=== PATIENT | female | born 1965 | race Caucasian/White ===

== ENCOUNTER 2018-09-13 21:14 | Emergency (ER) | payer BC ==
[2018-09-13 21:32] VITALS: BP 154/108
[2018-09-13] MEDS ORDERED: metroNIDAZOLE TAB* 250 MG PO ONE (21:46)
--- NOTE | 2018-09-13 21:55 | UC ---
Abdominal Pain Female HPI - HPI Summary HPI Summary: 52 year old female with diarrhea over the past 1-2 days. 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 She states she used universal precautions when caring for the patient however the past 2 days she did not. She's also had cold symptoms. She has not had a period in approximately 5 or 6 months however she has started her period as well. She is perimenopausal at this point in time. She has some mild lower abdominal discomfort which she states "I would not call it pain". - History of Current Complaint Chief Complaint: UCGI Stated Complaint: DIARRHEA,ABD PAIN (EXPOSED TO CDIFF) Time Seen by Provider: 09/13/18 21:20 Hx Obtained From: Patient Hx Last Menstrual Period: 09/12/18 ?: No Onset/Duration: Gradual Onset Timing: Intermittent Episodes Lasting: Severity Initially: Mild Severity Currently: Mild Pain Intensity: 3 Location: Diffuse, Other - Across lower abdomen. Radiates: No Character: Dull Aggravating Factor(s): Nothing Alleviating Factor(s): Nothing Associated Signs and Symptoms: Positive: Diarrhea Allergies/Adverse Reactions: Allergies Allergy/AdvReac Type Severity Reaction Status Date / Time No Known Allergies Allergy Verified 09/13/18 21:21 Home Medications: Home Medications Acetaminophen [Extra Strength Non-Aspirin] 1,500 mg PO Q8H PRN 09/13/18 [ History Confirmed 09/13/18] Albuterol HFA INHALER* [Ventolin HFA Inhaler*] 2 puff INH Q4H PRN 09/13/18 [ History Confirmed 09/13/18] Ibuprofen/Pseudoephedrine HCl [Advil Cold & Sinus] 1 tab PO DAILY PRN 09/13/18 [ History Confirmed 09/13/18] Mometasone/Formoter 200/5 MDI* [Dulera 200/5 MDI*] 1 puff INH BID 09/13/18 [ History Confirmed 09/13/18] PMH/Surg Hx/FS Hx/Imm Hx Previously Healthy: Yes - Surgical History Surgical History: Yes Surgery Procedure, Year, and Place: . BREAST REDUCTION- S. RIGHT FOOT SURGERY- 2009 YEARS AGO. Left foot--2016 - Social History Alcohol Use: Occasionally Substance Use Type: None Smoking Status (MU): Former Smoker Review of Systems All Other Systems Reviewed And Are Negative: Yes Constitutional: Positive: Negative Skin: Positive: Negative Eyes: Positive: Negative ENT: Positive: Sinus Congestion, Other - Mild upper respiratory illness over the past 2-3 weeks. Denies any sinus tenderness. Respiratory: Positive: Negative Cardiovascular: Positive: Negative Gastrointestinal: Positive: Abdominal Pain, Diarrhea - Lower abdominal pain. Genitourinary: Positive: Negative, Other - She had not had a menses for approximately 5 or 6 months but started her menses today. Motor: Positive: Negative Neurovascular: Positive: Negative Musculoskeletal: Positive: Negative Neurological: Positive: Negative Psychological: Positive: Negative Is Patient Immunocompromised?: No Physical Exam Triage Information Reviewed: Yes Appearance: Well-Appearing, No Pain Distress, Well-Nourished Vital Signs: Initial Vital Signs Temp 97.3 F 09/13/18 21:26 Pulse 91 09/13/18 21:26 Resp 17 09/13/18 21:26 BP 154/108 09/13/18 21: Pulse Ox 98 09/13/18 21:26 Vital Signs Reviewed: Yes Eye Exam: Normal ENT: Positive: Hearing grossly normal - Wears bilateral hearing aids., Pharynx normal, Nasal congestion, TMs normal, Uvula midline. Negative: Tonsillar swelling, Tonsillar exudate, Trismus, Muffled voice, Sinus tenderness Neck exam: Normal Neck: Positive: Supple, Nontender, No Lymphadenopathy Respiratory Exam: Normal Respiratory: Positive: Lungs clear, Normal breath sounds, No respiratory distress, No accessory muscle use Cardiovascular Exam: Normal Cardiovascular: Positive: RRR, No Murmur, Pulses Normal, Brisk Capillary Refill Abdomen Description: Positive: No Organomegaly, Soft - Very mild tenderness on palpation across lower abdomen, no rigidity, rebound or guarding.. Negative: Distended Bowel Sounds: Positive: Present, Hyperactive Musculoskeletal Exam: Normal Neurological Exam: Normal Psychological Exam: Normal Abd Pain Female Course/Dx - Course Course Of Treatment: Recent has been comfortable here. Will start on metronidazole 500 mg by mouth 3 times a day for 10 days. We will call her with stool culture results. She is to follow-up with her primary care provider in 2 or 3 days for recheck. She is to go to the emergency room if any worsening symptoms, fever, chills, vomiting. - Differential Dx/Diagnosis Differential Diagnosis: Diverticulitis, Other - C difficile Provider Diagnosis: Diarrhea, Abdominal pain Discharge - Sign-Out/Discharge Documenting (check all that apply): Patient Departure All imaging exams completed and their final reports reviewed: No Studies - Discharge Plan Condition: Fair Disposition: HOME Prescriptions: metroNIDAZOLE [Metronidazole] 500 mg PO TID 10 Days #29 tablet Patient Education Materials: C Diff (Clostridium Difficile) Infection (ED) Referrals: Kofi Edward MD [Primary Care Provider] - Additional Instructions: Increase fluids. We will call you with the culture results. Follow-up with your primary care provider in 2 or 3 days for a recheck. If you develop worsening abdominal pain or worsening diarrhea your to go to the emergency room for further treatment, especially if you start running a fever. - Billing Disposition and Condition Condition: FAIR Disposition: Home - Attestation Statements Provider Attestation: Per institutional requirements, I have reviewed the chart, however, I was not consulted specifically or made aware of this patient by the midlevel provider. I did not personally evaluate, interact with , or disposition this patient.
--- NOTE | 2018-09-15 11:23 | UC ---
- Progress Note Progress Note: PLS CALL PT. STOOL NEGATIVE FOR C. DIFFICILE. OKAY TO CONTINUE METRONIDAZOLE FOR NOW PENDING REMAINING STOOL STUDY RESULTS. Course/Dx - Diagnoses Provider Diagnoses: Diarrhea, Abdominal pain Discharge - Sign-Out/Discharge Documenting (check all that apply): Post-Discharge Follow Up All imaging exams completed and their final reports reviewed: No Studies - Discharge Plan Condition: Fair Disposition: HOME Prescriptions: metroNIDAZOLE [Metronidazole] 500 mg PO TID 10 Days #29 tablet Patient Education Materials: C Diff (Clostridium Difficile) Infection (ED) Referrals: Kofi Edward MD [Primary Care Provider] - Additional Instructions: Increase fluids. We will call you with the culture results. Follow-up with your primary care provider in 2 or 3 days for a recheck. If you develop worsening abdominal pain or worsening diarrhea your to go to the emergency room for further treatment, especially if you start running a fever. - Billing Disposition and Condition Condition: FAIR Disposition: Home
== END 2018-09-13 22:24 | disposition home or self-care (01) ==
LOC: UCCORT 21:14
DX: R19.7 Diarrhea, unspecified (principal); R10.30 Lower abdominal pain, unspecified; Z87.891 Personal history of nicotine dependence
CPT/HCPCS: 87045; 87046; 87493; 87899; 99212; A9270-GY; G0463

== ENCOUNTER 2018-10-01 16:22 | Emergency (ER) | payer BC ==
--- NOTE | 2018-10-01 16:49 | UC ---
Abdominal Pain Female HPI - HPI Summary HPI Summary: 52 yo female presents with alternating loose stools and constipation with periumbilical and left abdominal pain for the last 2-3 weeks. She was seen here about 3 weeks ago and mentioned that she was exposed to c. diff at a custodial and placed on flagyl. Stool cultures were negative so she did not finish the flagyl. She saw her PCP and her PCP advised to avoid gluten and fatty foods. This has not changed her symptoms. She is here with continued symptoms and is concerned it may be diverticulitis as she has had this in the past and has felt similar. She does have a decreased appetite and some nausea, but has never vomited. No change in diet. Denies fever, chills, SOB, chest pain, dysuria. - History of Current Complaint Stated Complaint: ABD PAIN,DIARRHEA Time Seen by Provider: 10/01/18 16:49 Hx Obtained From: Patient Hx Last Menstrual Period: 09/12/18 Onset/Duration: Gradual Onset Severity Initially: Moderate Severity Currently: Moderate Pain Intensity: 6 Pain Scale Used: 0-10 Numeric Allergies/Adverse Reactions: Allergies Allergy/AdvReac Type Severity Reaction Status Date / Time No Known Allergies Allergy Verified 10/01/18 16:56 PMH/Surg Hx/FS Hx/Imm Hx Psychological History: Anxiety, Depression - Surgical History Surgical History: Yes Surgery Procedure, Year, and Place: . BREAST REDUCTION- 1979'S. RIGHT FOOT SURGERY- 2009 YEARS AGO. Left foot--2016 - Family History Known Family History: Positive: Cardiac Disease - Social History Occupation: Employed Full-time Lives: With Family Alcohol Use: Occasionally Substance Use Type: None Smoking Status (MU): Former Smoker Review of Systems All Other Systems Reviewed And Are Negative: Yes Constitutional: Positive: Negative Skin: Positive: Negative Respiratory: Positive: Negative Cardiovascular: Positive: Negative Gastrointestinal: Positive: Abdominal Pain, Diarrhea, Nausea, Other - Constipation Neurovascular: Positive: Negative Psychological: Positive: Negative Physical Exam - Summary Physical Exam Summary: GENERAL: NAD. WDWN. No pain distress. SKIN: No rashes, sores, lesions, or open wounds. NECK: Supple. Nontender. No lymphadenopathy. CHEST: CTAB. No r/r/w. No accessory muscle use. Breathing comfortably and in no distress. CV: RRR. Without m/r/g. Pulses intact. Cap refill <2seconds ABDOMEN: Mild TTP periumbulical and LUQ. Soft. No distention or guarding. No CVA tenderness. Bowel sounds present. No mcburnery point tenderness. Neg riddle sign. NEURO: Alert. PSYCH: Age appropriate behavior. Triage Information Reviewed: Yes Vital Signs: Vital Signs: Temp Pulse Resp BP Pulse Ox 99.8 F 85 16 116/80 100 10/01/18 16:47 10/01/18 16:47 10/01/18 16:47 10/01/18 16:47 10/01/18 16:47 Laboratory Tests 10/01/18 17:18 POC Urine Color Dark yellow POC Urine Clarity Clear POC Urine pH 5.5 POC Ur Specif [place] >= 1.030 POC Urine Protein Trace A POC Ur Glucose (UA) Negative POC Urine Ketones 2+ A POC Urine Blood Trace-intact A POC Urine Nitrite Negative POC Urine Bilirubin Negative POC Urine Urobilinogen 0.2 POC U Leukocyte Esteras Negative Vital Signs Reviewed: Yes Abd Pain Female Course/Dx - Course Course Of Treatment: UA negative for infection. CT w/o: IMPRESSION: 1. Mild pericolonic inflammatory change at the proximal left descending colon in the presence of multiple diverticula favors a diagnosis of diverticulitis. There is no evidence of macro perforation or drainable abscess. 2. Rectosigmoid diverticulosis without focal inflammatory change at this portion of the bowel. 3. Additional chronic and degenerative changes described in body the report that are unlikely to BE related to the patient's current clinical presentation. Given CT and clinical impression and with hx of diverticulitis will treat as diverticulitis today with Cipro and Flagyl - Differential Dx/Diagnosis Provider Diagnosis: Diverticulitis Discharge - Sign-Out/Discharge Documenting (check all that apply): Patient Departure All imaging exams completed and their final reports reviewed: Yes - Discharge Plan Condition: Stable Disposition: HOME Prescriptions: Ciprofloxacin TAB* [Cipro 500 MG TAB*] 500 mg PO BID #14 tab metroNIDAZOLE [Flagyl 500 MG TAB] 500 mg PO TID #21 tab Patient Education Materials: Diverticulitis (ED), Diverticulosis (ED) Referrals: Kofi Edward MD [Primary Care Provider] - 1 Week Additional Instructions: If you develop a fever, shortness of breath, chest pain, new or worsening symptoms - please call your PCP or go to the ED. - Billing Disposition and Condition Condition: STABLE Disposition: Home
[2018-10-01 16:56] VITALS: BP 116/80
== END 2018-10-01 18:30 | disposition home or self-care (01) ==
LOC: UCEAST 16:22
DX: K57.32 Diverticulitis of large intestine without perforation or abscess without bleeding (principal); Z87.891 Personal history of nicotine dependence
CPT/HCPCS: 74176; 81003; 99212; G0463